=== PATIENT | female | born 2000 | race Caucasian/White ===

== ENCOUNTER → 2024-01-17 | Outpatient (CLI) | payer BC, SELFPAY ==
[2024-01-17 16:43] LABS: Mucous, Urine 0 SEEN /hpf (<or=2+); Red Blood Cells-Urine 0 SEEN /hpf (0-5)
[2024-01-17 18:42] LABS: Color, Urine Yellow (Yellow); Glucose, Dipstick Normal (Normal); Ketone-Dipstick Negative (Negative); Leukocyte Esterase-Dipstick 100 /ul (Negative); Nitrite-Dipstick Negative (Negative); Occult Blood-Urine 50 /ul (Negative); Protein-Dipstick Negative (Negative); Specific Gravity, Urine 1.005 (1.002-1.030); Urine Bilirubin Dipstick Negative (Negative); Urine Clarity Clear (Clear); Urine Urobilinogen Normal (Normal)
[2024-01-17 19:12] LABS: Bacteria 3+ /hpf (None Seen); White Blood Cells 0-5 SEEN /hpf (0-5)
[2024-01-17 19:13] LABS: Squamous Epithelial Cells - UA 0-5 SEEN /hpf (5-10)
== END | disposition home or self-care (01) ==
LOC: MFPLAB 16:41
PROVIDERS: PCP Family Medicine; Referring Provider Family Medicine; Visit Provider Family Medicine
DX: N39.0 Urinary tract infection, site not specified (principal)
CPT/HCPCS: 81001; 87086; 87088; 87186

== ENCOUNTER → 2024-03-15 | Outpatient (CLI) | payer BC, SELFPAY ==
[2024-03-15 10:15] LABS: Absolute Lymphocyte Count 2.19 X10^3/uL (0.83-4.51); Absolute Neutrophil Count 2.7 X10^3/uL (2.0-7.7); Basophil# 0.03 X10^3/uL; Basophil% 0.5 % (0-1); Eosinophil# 0.14 X10^3/uL; Eosinophils% 2.5 % (0-5); Hematocrit 42.1 % (37-47); Hemoglobin 13.2 g/dL (12.0-15.0); Lymphocyte # 2.19 X10^3/ul (0.83-4.51); Lymphocyte % 39.7 % (19-41); Mean Corp Hgb Conc 31.4 g/dL (32-36); Mean Corpuscular Hgb 28.6 pg (27.0-32.0); Mean Corpuscular Volume 91.1 fL (81-99); Mean Platelet Vol. 12.8 fl (6.2-12.0); Monocyte# 0.41 X10^3/uL; Monocyte% 7.4 % (0-10); NRBC Flagged by Analyzer 0 % (0-5); Neutrophil # 2.74 X10^3/uL (2.7-7.7); Neutrophil % 49.7 % (47-70); Platelet Count 187 K/mm3 (150-450); RBC Distribution Width CV 13.3 % (11.6-14.6); RBC Distribution Width SD 44.5 fl (35.1-43.9); Red Blood Count 4.62 M/mm3 (4.2-5.4); White Blood Count 5.5 K/mm3 (4.4-11.0)
[2024-03-15 10:32] LABS: Vitamin D,25 Hydroxy 32.9 ng/mL
[2024-03-15 10:56] LABS: ALB/GLOB Ratio 1.3 RATIO (0.9-2.4); AST(SGOT) 9 U/L (15-37); Alanine Aminotransfer ALT/SGPT 16 U/L (13-56); Albumin, Serum 3.5 g/dL (3.2-5.0); Alkaline Phosphatase 89 U/L (45-117); Anion Gap 6 (5-15); BUN 15 mg/dL (7-18); BUN/Creat Ratio 22.8 RATIO (10-20); Calcium,Total 8.5 mg/dL (8.5-10.1); Chloride 110 mmol/L (98-107); Creatinine, Serum 0.66 mg/dL (0.55-1.02); EST Glomerular Filtration Rate 116 mL/min (>60); Est Glom Filt Rate - Afr Amer 141 mL/min (>60); Globulin 2.6 g/dL (2.2-4.2); Glucose 95 mg/dL (74-106); Protein, Total 6.1 g/dL (6.4-8.2); Sodium Level 142 mmol/L (136-145)
== END | disposition home or self-care (01) ==
LOC: MTLAB 08:07
PROVIDERS: PCP Family Medicine; Referring Provider Family Medicine; Visit Provider Family Medicine
DX: R53.83 Other fatigue (principal)
CPT/HCPCS: 36415; 80053; 82306; 84443; 85025

== ENCOUNTER → 2024-09-18 | Outpatient (CLI) | payer BC, SELFPAY ==
--- NOTE | 2024-09-18 15:59 | RAD_ITS ---
PROCEDURE: KNEE 4 OR MORE VIEWS 09/18/2024 REASON FOR EXAM: LEFT KNEE PAIN TECHNIQUE: KNEE 4 OR MORE VIEWS COMPARISON: None FINDINGS: No fracture or malalignment. Joint spaces are maintained. Bone mineral density is subjectively normal. The soft tissues are unremarkable. No joint effusion. RAD/Knee 4 or More Views IMPRESSION: Unremarkable left knee radiographs. Reading Location: [id number]
== END | disposition home or self-care (01) ==
LOC: MTRAD 15:59
PROVIDERS: PCP Family Medicine; Referring Provider Family Medicine; Visit Provider Family Medicine
DX: M25.562 Pain in left knee (principal)
CPT/HCPCS: 73564

== ENCOUNTER → 2024-11-30 | Outpatient (CLI) | payer BC, SELFPAY | END | disposition home or self-care (01) | LOC: LABSPEC 16:11 | PROVIDERS: PCP Family Medicine | DX: R35.0 Frequency of micturition (principal) | CPT/HCPCS: 87086 ==

== ENCOUNTER → 2025-02-15 | Outpatient (CLI) | payer BC, SELFPAY ==
--- OUTSIDE RECORDS SUMMARY | 2025-02-15 16:44 | XMS RPT_ITS | CCD ---
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 (18-24) CHLAMYDIA SCREENING (18-24) [facility] Start: 2017 GC (GONORRHEA) SCREE MOSES (18-24) GC (GONORRHEA) SCREENING (18-24) [facility] Start: 2017 HEPATITIS C SCREENING HEPATITIS C [facility] Start: 2017 Hepatitis C screening Hepatitis C [facility] Start: 2017 HIV SCREENING HIV SCREENING [facility] Start: 2017 HIV screening HIV Screening [facility] Start: 2015 Meningococcal B Vacc ine: Consider Based On Risk (1 of 2 - Patient Seeks Protection) Meningococcal B Vaccine: Consider Based On Risk (1 of 2 - Patient Seeks Protection) [facility] Start: 2015 MENINGOCOCCAL B: Consider based on risk (1 of 2 - Patient Seeks Protection) MENINGOCOCCAL B: Consider based on risk (1 of 2 - Patient Seeks Protection) [facility] Start: 2013 PEDS TO ADULT TRANSI TION ANNUAL ASSESSMENT PEDS TO ADULT TRANSITION ANNUAL ASSESSMENT [facility] Start: 2011 PEDS TO ADULT TRANSI TION INITIAL DISCUSSION PEDS TO ADULT TRANSITION INITIAL DISCUSSION [facility] Start: 2009 MENINGOCOCCAL B: Consider based on risk (1 of 2 - Risk Bexsero 2-dose series) MENINGOCOCCAL B: Consider based on risk (1 of 2 - Risk Bexsero 2-dose series) [facility] Start: 1999 COVID-19 VACCINE (#1) COVID-19 VACCI NE (#1) [facility] PAP FLUID CERVICAL SCREENING PAP FLUID CERVICAL SCREENING Lab Routine Encounter for gynecological examination (general) (routine) without abnormal findings Screening for cervical cancer 11/06/2021 4:12 PM EDT [facility] Work Phone: PAP TEST PAP TEST Lab Rou miki Encounter for gynecological examination (general) (routine) without abnormal findings Screening for cervical cancer 11/16/2024 4:41 PM EDT [facility] Work Phone: [facility] Immunizations Immunization Date Immunization Notes Care Provider Mike rosenda 06-01-2023 tetanus toxoid, redu gege diphtheria toxoid, and acellular pertussis vaccine, adsorbed Isabel Dowd APRN.CARTOGRAPHIC DRAFTER Work Phone: [facility] 01-13-2023 influenza virus vacc ine, unspecified formulation Isabel Dowd APRN.CARTOGRAPHIC DRAFTER Work Phone: [facility] 03-12-2022 Human Papillomavirus 9-valent vaccine Nurse Wstr Work Phone: [facility] 11-06-2021 Human Papillomavirus 9-valent vaccine Isabel Dowd APRN.CARTOGRAPHIC DRAFTER Work Phone: [facility] 10-30-2020 Human Papillomavirus 9-valent vaccine Isabel Dowd APRN.CARTOGRAPHIC DRAFTER Work Phone: [facility] Work Phone: 11-18-2016 meningococcal polysaccharide (groups A, C, Y and W-135) diphtheria toxoid conjugate vaccine (MCV4P) Isabel Dowd APRN.CARTOGRAPHIC DRAFTER Work Phone: [facility] 01-05-2015 influenza virus vacc ine, unspecified formulation Isabel Dowd APRN.CARTOGRAPHIC DRAFTER Work Phone: [facility] Work Phone: 03-08-2014 influenza, live, intranasal, quadrivalent Isabel Dowd APRN.CARTOGRAPHIC DRAFTER Work Phone: [facility] Work Phone: 01-13-2013 influenza virus vacc ine, live, attenuated, for intranasal use Isabel Dowd APRN.CARTOGRAPHIC DRAFTER Work Phone: [facility] Work Phone: 10-30-2012 varicella virus vaccine Isabel Dowd APRN.CARTOGRAPHIC DRAFTER Work Phone: [facility] 12-25-2011 influenza virus vacc ine, live, attenuated, for intranasal use Isabel Dowd APRN.CARTOGRAPHIC DRAFTER Work Phone: [facility] Work Phone: 12-26-2010 influenza virus vacc ine, live, attenuated, for intranasal use Isabel Dowd APRN.[facility] Work Phone: [facility] Work Phone: 10-28-2010 Meningococcal, MCV4, unspecified conjugate formulation(groups A, C, Y and W-135) Isabel Dowd APRN.[facility] Work Phone: [facility] Work Phone: 10-28-2010 tetanus toxoid, redu gege diphtheria toxoid, and acellular pertussis vaccine, adsorbed Isabel Dowd APRN.[facility] Work Phone: [facility] Work Phone: 01-28-2009 novel influenza-H1N1 -09, all formulations Isabel Dowd APRN.[facility] Work Phone: [facility] 12-14-2008 influenza virus vacc ine, live, attenuated, for intranasal use Isabel Dowd APRN.[facility] Work Phone: [facility] Work Phone: 02-03-2008 influenza virus vacc ine, unspecified formulation Isabel Dowd APRN.[facility] Work Phone: [facility] Work Phone: 01-28-2007 influenza virus vacc ine, unspecified formulation Isabel Dowd APRN.[facility] Work Phone: [facility] Work Phone: 03-05-2006 influenza virus vacc ine, unspecified formulation Isabel Dowd APRN.[facility] Work Phone: [facility] Work Phone: 01-21-2005 influenza virus vacc ine, unspecified formulation Isabel Dowd APRN.[facility] Work Phone: [facility] Work Phone: 11-11-2003 diphtheria, tetanus toxoids and acellular pertussis vaccine Isabel Dowd APRN.[facility] Work Phone: [facility] Work Phone: 11-11-2003 measles, mumps and rubella virus vaccine Isabel Dowd APRN.[facility] Work Phone: [facility] Work Phone: 11-11-2003 poliovirus vaccine, inactivated Isabel Dowd AMERICANIZATION TEACHER.CARTOGRAPHIC DRAFTER Work Phone: [facility] Work Phone: 05-03-2001 measles, mumps and rubella virus vaccine Isabel Dowd APRN.CARTOGRAPHIC DRAFTER Work Phone: [facility] Work Phone: 12-27-2000 poliovirus vaccine, inactivated Isabel Dowd APRN.[facility] Work Phone: [facility] Work Phone: 07-05-2000 diphtheria, tetanus toxoids and acellular pertussis vaccine Isabel Dowd APRN.[facility] Work Phone: [facility] Work Phone: 07-05-2000 hepatitis B vaccine, pediatric or pediatric/adolescent dosage Isabel Dwod APRN.CARTOGRAPHIC DRAFTER Work Phone: [facility] Work Phone: 07-05-2000 pneumococcal conjuga te vaccine, 7 valent Isabel Dowd APRN.CARTOGRAPHIC DRAFTER Work Phone: [facility] Work Phone: 04-26-2000 haemophilus influenz ae type b vaccine, HbOC conjugate Isabel Dowd APRN.CARTOGRAPHIC DRAFTER Work Phone: [facility] Work Phone: 04-26-2000 pneumococcal conjuga te vaccine, 7 valent Isabel Dowd APRN.CARTOGRAPHIC DRAFTER Work Phone: [facility] Work Phone: 04-26-2000 varicella virus vaccine Isabel Dowd APRN.CARTOGRAPHIC DRAFTER Work Phone: [facility] Work Phone: 02-09-2000 hepatitis B vaccine, pediatric or pediatric/adolescent dosage Isabel Dowd APRN.CARTOGRAPHIC DRAFTER Work Phone: [facility] Work Phone: 02-09-2000 pneumococcal conjuga te vaccine, 7 valent Isabel Lynnhrie AMERICANIZATION TEACHER.[facility] Work Phone: [facility] Work Phone: 1999 diphtheria, tetanus toxoids and acellular pertussis vaccine Isabel Dowd AMERICANIZATION TEACHER.[facility] Work Phone: [facility] Work Phone: 1999 haemophilus influenz ae type b vaccine, HbOC conjugate Isabel Dowd AMERICANIZATION TEACHER.[facility] Work Phone: [facility] Work Phone: 1999 hepatitis B vaccine, pediatric or pediatric/adolescent dosage Isabel Dowd AMERICANIZATION TEACHER.[facility] Work Phone: [facility] Work Phone: 1999 pneumococcal conjuga te vaccine, 7 valent Isabel Dowd AMERICANIZATION TEACHER.[facility] Work Phone: [facility] Work Phone: 1999 diphtheria, tetanus toxoids and acellular pertussis vaccine Isabel Dowd AMERICANIZATION TEACHER.[facility] Work Phone: [facility] Work Phone: 1999 haemophilus influenz ae type b vaccine, HbOC conjugate Isabel Dowd AMERICANIZATION TEACHER.[facility] Work Phone: [facility] Work Phone: 1999 poliovirus vaccine, inactivated Isabel Dowd AMERICANIZATION TEACHER.CARTOGRAPHIC DRAFTER Work Phone: [facility] Work Phone: 1999 diphtheria, tetanus toxoids and acellular pertussis vaccine Isabel Dowd AMERICANIZATION TEACHER.CARTOGRAPHIC DRAFTER Work Phone: [facility] Work Phone: 1999 haemophilus influenz ae type b vaccine, HbOC conjugate Isabel Dowd AMERICANIZATION TEACHER.CARTOGRAPHIC DRAFTER Work Phone: [facility] Work Phone: 1999 poliovirus vaccine, inactivated Isabel Dowd APRN.[facility] Work Phone: [facility] Work Phone: Payers Date Payer Category Payer Self-pay 2021 [employer] BLUE CARD PPO OOS Member Subscriber Plan / Payer (Effective 2021-Present) Name: LIANNA CONDON Relation to Subscriber: Self Name: Lianna Condon Payer ID: [id number] (NAIC) Type: PPO Address: [facility] [address] [place] [id number] 2021 Unknown [id number] 2020 Unknown [id number] Unknown [id number] Unknown [id number] Unknown [id number] Unknown [id number] Unknown [id number] Unknown [id number] Unknown [id number] Social History Date Type Detail Facility Start: 08-29-2017 End: 10-04-2024 Tobacco smoking status NHIS Never smoked tobacco [facility] Start: 08-29-2017 End: 03-12-2022 Tobacco use and exposure Smokeless tobacco non-user [facility] Start: 11-06-2021 End: 11-16-2024 Alcohol intake Current non-drinker of alcohol (finding) [facility] Start: 10-30-2020 Education [address] [facility] Start: 1999 Sex Assigned At Not on file C [facility] Start: 11-09-2022 End: 11-16-2024 History of Social function [facility] Start: 11-09-2022 End: 11-16-2024 Tobacco use panel [facility] Start: 02-20-2012 National Score (1-10 0), lower number is lower risk [address] [facility] Tobacco smoking stat [facility] Unknown if ever smoked [facility] Work Phone: Start: 2000 Sex Assigned At Female W [facility] Functional Status Date Assessment Result Facility 08-06-2014 Are you deaf, or do you have serious difficulty hearing No 08/06/2014 10:07 AM EDT Payam Medeiros Cma L No [facility] 08-06-2014 Are you blind, or do you have serious difficulty seeing, even when wearing glasses No 08/06/2014 10:07 AM EDT Waldemar Hicks Payam L No [facility] 08-06-2014 Do you have serious difficulty walking or climbing stairs No 08/06/2014 10:07 AM EDT Tristan Medeiros Cmai L No [facility] 08-06-2014 Do you have difficul ty dressing or bathing No 08/06/2014 10:07 AM EDT Tristan Medeiros Cmai L No [facility] 08-06-2014 Because of a physica l, mental, or emotional condition, do you have difficulty doing errands alone such as visiting a physician's office or shopping No 08/06/2014 10:07 AM EDTristan Dudley Cmai L No [facility] Mental Status Date Assessment Result Facility 08-06-2014 Because of a physica l, mental, or emotional condition, do you have serious difficulty concentrating, remembering, or making decisions No 08/06/2014 10:07 AM EDT Tristan Medeiros Cmai L No [facility] Clinical Notes 11-06-2021 to 11-16-2024 Patient InstructionsIsabel Dowd APRN.CARTOGRAPHIC DRAFTER - 11/16/2024 3:45 PM EDT Note Date & Type Note Facility 11-16-2024 Instructions Isabel Dowd APRN.CNP - 11/16/2024 5:22 PM EDT - Pap test specimen collected; results will be [facility] 1[facility] and you will receive a notification when they re ready. - Continue taking your cranberry capsules and vitamin with folic acid as you ve been doing. - For the recurrent small bumps (folliculitis) on your labia: apply warm compresses to the area, use antibiotic ointment, and consider soaking in a warm bath with Epsom salts if lesions worsen. Avoid squeezing or picking at them. - If you experience ongoing irritation from the size or position of your labia and wish to explore a surgical option, schedule a consultation with Dr. Maile Amezquita in our office; she will assess you and submit any necessary documentation to your insurance for coverage review. documented in this encounter [facility] 11-16-2024 Note HNO ID: [id number] Author: ISABEL DOWD APRN.BLAS Service: ? Author Type: Nurse Practitioner Type: Progress Notes Filed: 11/16/2024 17:23 Note Text: Pharmacy Stock Clerk offered: Patient declines. Lianna is a 24 year old who presents for an annual gynecologic exam with complaints of recurrent pimple-like areas to vulva. Folliculitis - Reports recurrent folliculitis on the labia minora, with the most recent episode occurring approximately two weeks ago. - Describes lesions as small, painful, and sometimes associated with purplish discoloration. - Denies any recent shaving, hot tub use, or other potential irritants. Labial Irritation - Reports irritation of the left labia minora, which is longer than the right, causing discomfort with wiping and wearing certain clothing. Menses: cycles every 28-30 days and 5 days of moderate flow. 1 missed period between May and June. Period symptoms: Acne; Breast tenderness; Cramps; Mood change Contraception: withdrawal Happy and accepting if occurs. Libido and mood is better. HPV vaccine: completed Last Pap: 11/06/2021 normal HPV: N/A History of abnormal pap: no Last mammogram: never Sexually active: Yes History of STDS: None Patient concerns for STD exposure: No. Time with current partner: 4 year Number of lifetime partners: 1 Pain with intercourse: No Postcoital bleeding: No Bothersome pelvic pain: No Documentation from previous visit of 11/15/2023 was copied and pasted, documentation has been reviewed and edited as necessary for today's visit. OB History Gravida0 Para0 Term0 Preterm0 AB0 Living0 SAB0 IAB0 Ectopic0 Multiple0 Live Births0 Resourcing Consultant History LMP: 10/20/2024, Having periods Age at Menarche: 10 Age at First : Age at Menopause: Resourcing Consultant History Comments: Sexual Activity: Yes; Male Contraception: Withdrawal Menstrual Tracking History Flowsheet Row Office Visit from 11/16/2024 in OB/Gynecology Period Cycle (Days) 30 Period Duration (Days) 5 Menstrual Flow Moderate PAST MEDICAL HISTORY Diagnosis Date NEGATIVE MEDICAL HISTORY 10/21/09 normal color vision PMH - PAST MEDICAL HISTORY OF fused labial adhesion Unspecified and jaundice PAST SURGICAL HISTORY Procedure Laterality Date NONE FAMILY HISTORY Problem Relation Age of Onset Allergies Mother Asthma Mother other () Mother 10/17/09 homicide/suicide Diabetes Father maternal side Hypertension Father maternal side other () Father 10/17/09 homicide/suicide Dementia Maternal Grandmother Glaucoma Maternal Grandfather Seizures Maternal Grandfather SOCIAL HISTORY Social History Tobacco Use Smoking status: Never Smokeless tobacco: Never Vaping Use Vaping status: Never Used Substance Use Topics Alcohol use: No Drug use: No REVIEW OF SYSTEMS Abdomen: No abdominal pain, nausea, vomiting, diarrhea, or constipation. No bloating, early satiety, indigestion, or increased flatulence. Bladder: No dysuria, gross hematuria, urinary frequency, urinary urgency, or incontinence. Breast: No breast lumps, nipple d/c, overlying skin changes, redness or skin retraction. Allergies and current medication updated:Yes SENSITIVE EXAM: The sensitive examination was discussed with the Patient or Patient's Authorized Host And Hostess. As applicable, any other physician, advance practice provider, medical student, or other health professional student that will be observing or involved in the sensitive examination for educational or training purposes was discussed with the Patient or Authorized Host And Hostess. The Patient or Authorized Host And Hostess has agreed to proceed with the sensitive examination. (Sensitive examination includes inspection and/or palpation of the breasts, pelvis, prostate and anorectal regions). EXAM: BP 112/73 Ht 5' 3 (1.60m) Wt 130 lb (59.0kg) LMP 10/20/2024 BMI 23.03 kg/(m2). GENERAL: pleasant, female in no apparent distress HEENT: Normocephalic, atraumatic, mucus membranes moist, and no lesions NECK: Supple, full range of motion, no adenopathy, and thyroid normal DERMATOLOGY: Normal, without lesions, non-icteric, and non-hirsute BREAST: soft, non-tender, symmetric, no dominant mass, normal nipple-areolar complex, no lymphadenopathy, and no nipple discharge CHEST: Normal inspiratory effort ABDOMEN: soft, non-tender, and no masses PELVIC: external genitalia normal, normal Bartholin's glands, urethra, [place]'s glands, no vulvar lesions, no cervical lesions, good vaginal support, physiologic discharge present, normal appearing perineal body and perianal region. Left labia larger than right. BIMANUAL: uterus normal size, shape and consistency, no adnexal masses, and non-tender RECTOVAGINAL: deferred. NEURO: alert and oriented x3,exam grossly non-focal EXTREMITIES: normal ASSESSMENT/PLAN: 1) Health maintenance: Pap done with reflex H (more content not included)... [facility] 11-16-2024 History of Presen t illness Narrative Pharmacy Stock Clerk offered: Patient declines. Lianna is a 24 year old who presents for an annual gynecologic exam with complaints of recurrent pimple-like areas to vulva. Folliculitis - Reports recurrent folliculitis on the labia minora, with the most recent episode occurring approximately two weeks ago. - Describes lesions as small, painful, and sometimes associated with purplish discoloration. - Denies any recent shaving, hot tub use, or other potential irritants. Labial Irritation - Reports irritation of the left labia minora, which is longer than the right, causing discomfort with wiping and wearing certain clothing. Menses: cycles every 28-30 days and 5 days of moderate flow. 1 missed period between May and June. Period symptoms: Acne; Breast tenderness; Cramps; Mood change Contraception: withdrawal Happy and accepting if occurs. Libido and mood is better. HPV vaccine: completed Last Pap: 11/06/2021 normal HPV: N/A History of abnormal pap: no Last mammogram: never Sexually active: Yes History of STDS: None Patient concerns for STD exposure: No. Time with current partner: 4 year Number of lifetime partners: 1 Pain with intercourse: No Postcoital bleeding: No Bothersome pelvic pain: No Documentation from previous visit of 11/15/2023 was copied and pasted, documentation has been reviewed and edited as necessary for today's visit. OB History Gravida0 Para0 Term0 Preterm0 AB0 Living0 SAB0 IAB0 Ectopic0 Multiple0 Live Births0 Resourcing Consultant History LMP: 10/20/2024, Having periods Age at Menarche: 10 Age at First : Age at Menopause: Resourcing Consultant History Comments: Sexual Activity: Yes; Male Contraception: Withdrawal Menstrual Tracking History Flowsheet Row Office Visit from 11/16/2024 in OB/Gynecology Period Cycle (Days) 30 Period Duration (Days) 5 Menstrual Flow Moderate PAST MEDICAL HISTORY Diagnosis Date NEGATIVE MEDICAL HISTORY 10/21/09 normal color vision PMH - PAST MEDICAL HISTORY OF fused labial adhesion Unspecified and jaundice PAST SURGICAL HISTORY Procedure Laterality Date NONE FAMILY HISTORY Problem Relation Age of Onset Allergies Mother Asthma Mother other () Mother 10/17/09 homicide/suicide Diabetes Father maternal side Hypertension Father maternal side other () Father 10/17/09 homicide/suicide Dementia Maternal Grandmother Glaucoma Maternal Grandfather Seizures Maternal Grandfather SOCIAL HISTORY Social History Tobacco Use Smoking status: Never Smokeless tobacco: Never Vaping Use Vaping status: Never Used Substance Use Topics Alcohol use: No Drug use: No REVIEW OF SYSTEMS Abdomen: No abdominal pain, nausea, vomiting, diarrhea, or constipation. No bloating, early satiety, indigestion, or increased flatulence. Bladder: No dysuria, gross hematuria, urinary frequency, urinary urgency, or incontinence. Breast: No breast lumps, nipple d/c, overlying skin changes, redness or skin retraction. Allergies and current medication updated:Yes SENSITIVE EXAM: The sensitive examination was discussed with the Patient or Patient's Authorized Host And Hostess. As applicable, any other physician, advance practice provider, medical student, or other health professional student that will be observing or involved in the sensitive examination for educational or training purposes was discussed with the Patient or Authorized Host And Hostess. The Patient or Authorized Host And Hostess has agreed to proceed with the sensitive examination. (Sensitive examination includes inspection and/or palpation of the breasts, pelvis, prostate and anorectal regions). EXAM: BP 112/73 Ht 5' 3 (1.60m) Wt 130 lb (59.0kg) LMP 10/20/2024 BMI 23.03 kg/(m^2). GENERAL: pleasant, female in no apparent distress HEENT: Normocephalic, atraumatic, mucus membranes moist, and no lesions NECK: Supple, full range of motion, no adenopathy, and thyroid normal DERMATOLOGY: Normal, without lesions, non-icteric, and non-hirsute BREAST: soft, non-tender, symmetric, no dominant mass, normal nipple-areolar complex, no lymphadenopathy, and no nipple discharge CHEST: Normal inspiratory effort ABDOMEN: soft, non-tender, and no masses PELVIC: external genitalia normal, normal Bartholin's glands, urethra, Claremont's glands, no vulvar lesions, no cervical lesions, good vaginal support, physiologic discharge present, normal appearing perineal body and perianal region. Left labia larger than right. BIMANUAL: uterus normal size, shape and consistency, no adnexal masses, and non-tender RECTOVAGINAL: deferred. NEURO: alert and oriented x3,exam grossly non-focal EXTREMITIES: normal ASSESSMENT/PLAN: 1) Health maintenance: Pap done with reflex HPV. Nutrition, exercise and routine health maintenance exams reviewed. HPV vaccine: completed series - Pelvic examination revealed no acute abnormalities; patient reports occasional small, painful folliculitis-like lesions on the labia. - Advised application of warm compresses to affected areas; recommended topical antibiotic ointment to reduce further irritation and avoid manual expression of lesions. - Discussed potential irritants (e.g., shaving, hygiene products, friction) and measures to minimize recurrence. - Patient continues use of cranberry capsules and vitamins; no additional prescriptions. - Noted patient displeasure with left labium minor protrusion causing irritation; referred to Dr. Amezquita for possible labiaplasty consultation if desired. 2) Contraception: withdrawal. Contraceptive options reviewed and information provided.PNVFA 3) STD screening: Declined STI check. 4) Follow up one year or sooner as needed Isabel Dowd APRN.BLAS documented in this encounter [facility] 10-04-2024 Evaluation note Diagnosis Onset Date Resolution Bursitis of left knee acute Sep 3:27pm Strain of left knee acute October 04, 2024 3:27pm [facility] Work Phone: 1(670) 763-956907-01-2025 Radiology Diagnostic study note [facility] Imaging Services [address] [place], [place] [address] Knee 4 or More Views MR#: [id number] Acct: [id number] Name: LIANNA CONDON Rep #: [id number] : 2000 24 From: Mar Wade MD PCP: Dr. Bret Cormier MD Status: REG CL I Study:Knee 4 or More Views Date of Exam: 09/18/24 Exam# [id number] Ordering Dr: Saumya Cormier MD PROCEDURE: KNEE 4 OR MORE VIEWS 09/18/2024 REASON FOR EXAM: LEFT KNEE PAIN TECHNIQUE: KNEE 4 OR MORE VIEWS COMPARISON: None FINDINGS: No fracture or malalignment. Joint spaces are maintained. Bone mineral densityis subjectively normal. The soft tissues are unremarkable. No joint effusion. RAD/Knee 4 or More Views IMPRESSION: Unremarkable left knee radiographs. Reading Location: [facility] CC: Dr. Bret Cormier MD ~ City Collector: Signed [facility]08-27-2024 Instructions* Patient Instructions* Isabel Dowd APRN.CARTOGRAPHIC DRAFTER - 11/15/2023 3:49 PM EDT Preconception: vitamin with folic acid 0.4 - 1 mg daily. Eat a healthy, balanced diet with daily exercise. Avoid pollutants and exposure to chemicals. Period tracker to predict time of ovulation. If you have PCOS, ovulation trackers are not accurate. Sexual intercourse every other day around ovulation but at least once a week. Healthy sperm can live for one week. Avoid water-based lubricants. You can use Pre-Seed, which is not toxic to sperm. VCF contraceptive strips/membranes used with condoms 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 Lianna is a 23 year old who presents for an annual gynecologic exam without complaints. Menses: cycles every 28-30 days and 5 days of flow. Contraception: condoms- stopped at least 9 months ago to see how body would respond. Happy and accepting if occurs. Libido and mood is better. HPV vaccine: completed Last Pap: 11/06/2021 normal HPV: N/A History of abnormal pap: no Last mammogram: never Sexually active: Yes History of STDS: None Patient concerns for STD exposure: No. Time with current partner: 3 year Pain with intercourse: No Postcoital bleeding: No Documentation from previous visit of 11/09/2022 was copied and pasted, documentation has been reviewed and edited as necessary for today's visit. OB History T0 L0 SAB0 IAB0 Ectopic0 Multiple0 Live Births0 Resourcing Consultant History LMP: 11/04/2023 (Exact Date), Having periods Age at Menarche: Age at First : Age at Menopause: Resourcing Consultant History Comments: Sexual Activity: Yes; Male Contraception: Pill PAST MEDICAL HISTORY 10/21/09: NEGATIVE MEDICAL HISTORY Comment: normal color vision No date: PMH - PAST MEDICAL HISTORY OF Comment: fused labial adhesion No date: Unspecified and jaundicePAST SURGICAL HISTORY No date: NONE FAMILY HISTORY Problem Relation Age of Onset Allergies Mother Asthma Mother other () Mother 10/17/09 homicide/suicide Diabetes Father maternal side Hypertension Father maternal side other () Father 10/17/09 homicide/suicide Dementia Maternal Grandmother Glaucoma Maternal Grandfather Seizures Maternal Grandfather SOCIAL HISTORY Social History Tobacco Use Smoking status: Never Smokeless tobacco: Never Vaping Use Vaping status: Never Used Substance Use Topics Alcohol use: No Drug use: No REVIEW OF SYSTEMS Abdomen: No abdominal pain, nausea, vomiting, diarrhea, or constipation. No bloating, early satiety, indigestion, or increased flatulence. Bladder: No dysuria, gross hematuria, urinary frequency, urinary urgency, or incontinence. Breast: No breast lumps, nipple d/c, overlying skin changes, redness or skin retraction. Allergies and current medication updated:Yes EXAM: BP 118/64 Ht 5' 2.992 (1.60m) Wt 139 lb 9.6 oz (63.3kg) LMP 11/04/2023 BMI 24.74 kg/(m^2). GENERAL: pleasant, female in no apparent distress HEENT: Normocephalic, atraumatic, mucus membranes moist, and no lesions NECK: Supple, full range of motion, no adenopathy, and thyroid normal DERMATOLOGY: Normal, without lesions, non-icteric, and non-hirsute BREAST: soft, non-tender, symmetric, no dominant mass, normal nipple-areolar complex, no lymphadenopathy, and no nipple discharge CHEST: Normal inspiratory effort ABDOMEN: soft, non-tender, and no masses PELVIC: external genitalia normal, normal Bartholin's glands, urethra, Claremont's glands, no vulvar lesions, no cervical lesions, good vaginal support, physiologic discharge present, normal appearing perineal body and perianal region BIMANUAL: uterus normal size, shape and consistency, no adnexal masses, and non-tender RECTOVAGINAL: deferred. NEURO: alert and oriented x3,exam grossly non-focal EXTREMITIES: normal ASSESSMENT/PLAN: 1) Health maintenance: Pap/HPV up to date. Nutrition, exercise and routine health maintenance exams reviewed. HPV vaccine: completed series 2) Contraception: condoms. Contraceptive options reviewed and information provided. Recommend PNVFA 3) STD screening: Declined STD check. 4) Follow up one year or sooner as needed Isabel Dowd APRN.BLAS [facility] Instructions* Patient Instructions* Isabel Dowd APRN.CNP - 11/09/2022 3:29 PM EDT Preconception: vitamin with folic acid 0.4 - 1 mg daily. Eat a healthy, balanced diet with daily exercise. Avoid pollutants and exposure to chemicals. Period tracker to predict time of ovulation. Sexual intercourse every other day around ovulation but at least once a week. Healthy sperm can live for one week. Avoid water-based lubricants. You can use Pre-Seed, which is not toxic to sperm. documented [facility] History of Present illness Narrative* Isabel Dowd APRN.CNP - 11/09/2022 3:13 PM EDT Pharmacy Stock Clerk offered: Patient declines. Lianna is a 22 year old who presents for an annual gynecologic exam without complaints. Menses: cycles every 28 days and 5-6 days of flow. Contraception: OCP HPV vaccine: completed Last Pap: 10/2021 normal HPV: N/A History of abnormal pap: no Last mammogram: never Sexually active: Yes History of STDS: None Patient concerns for STD exposure: No. Time with current partner: 2 year Pain with intercourse: No Postcoital bleeding: No Documentation from previous visit of 11/06/2021 was copied and pasted, documentation has been reviewed and edited as necessary for today's visit. OB History T0 L0 SAB0 IAB0 Ectopic0 Multiple0 Live Births0 Resourcing Consultant History LMP: 10/28/2022 (Exact Date), Having periods Age at Menarche: Age at First : Age at Menopause: Resourcing Consultant History Comments: Sexual Activity: Yes; Male Contraception: Pill PAST MEDICAL HISTORY Diagnosis Date NEGATIVE MEDICAL HISTORY 10/21/09 normal color vision PMH - PAST MEDICAL HISTORY OF fused labial adhesion Unspecified and jaundice PAST SURGICAL HISTORY Procedure Laterality Date NONE FAMILY HISTORY Problem Relation Age of Onset Allergies Mother Asthma Mother other () Mother 10/17/09 homicide/suicide Diabetes Father maternal side Hypertension Father maternal side other () Father 10/17/09 homicide/suicide Dementia Maternal Grandmother Glaucoma Maternal Grandfather Seizures Maternal Grandfather SOCIAL HISTORY Social History Tobacco Use Smoking status: Never Smokeless tobacco: Never Vaping Use Vaping Use: Never used Substance Use Topics Alcohol use: No Drug use: No REVIEW OF SYSTEMS Abdomen: No abdominal pain, nausea, vomiting, diarrhea, or constipation. No bloating, early satiety, indigestion, or increased flatulence. Bladder: No dysuria, gross hematuria, urinary frequency, urinary urgency, or incontinence. Breast: No breast lumps, nipple d/c, overlying skin changes, redness or skin retraction. Allergies and current medication updated:Yes EXAM: BP 110/66 Ht 5' 3 (1.60m) Wt 151 lb 6.4 oz (68.7kg) LMP 10/28/2022 BMI 26.83 kg/(m^2). GENERAL: pleasant, female in no apparent distress HEENT: Normocephalic, atraumatic, mucus membranes moist, and no lesions NECK: Supple, full range of motion, no adenopathy, and thyroid normal DERMATOLOGY: Normal, without lesions, non-icteric, and non-hirsute BREAST: soft, non-tender, symmetric, no dominant mass, normal nipple-areolar complex, no lymphadenopathy, and no nipple discharge CHEST: Normal inspiratory effort ABDOMEN: soft, non-tender, and no masses PELVIC: external genitalia normal, normal Bartholin's glands, urethra, [place]'s glands, no vulvar lesions, no cervical lesions, good vaginal support, physiologic discharge present, normal appearing perineal body and perianal region BIMANUAL: uterus normal size, shape and consistency, no adnexal masses, and non-tender RECTOVAGINAL: deferred. NEURO: alert and oriented x3,exam grossly non-focal EXTREMITIES: normal ASSESSMENT/PLAN: 1) Health maintenance: Pap/HPV up to date. Nutrition, exercise and routine health maintenance exams reviewed. HPV vaccine: completed series 2) Contraception: combined hormonal contraceptives. Contraceptive options reviewed and information provided. Considering in next year. 3) STD screening: Declined STD check. 4) Follow up one year or sooner as needed Isabel Dowd APRN.BLAS [facility] Instructions* Patient Instructions* Henrietta Franklin RN - 03/12/2022 2:57 PM EST Gardasil Gardasil is a vaccine to protect against Human Papillomavirus (HPV) types 6, 11, 16, 18, 31,33,45, 52, 58. These viruses cause cancer and precancerous lesions on the cervix (opening between vagina and uterus), in the vagina and on the vulva (skin around the outside of the vagina) as well as genitalwarts. The vaccine cannot cause these diseases and cannot treat them if already present. Gardasil works best if given before contact with HPV. Most people are exposed to HPV soon after starting sexual activity. The vaccine is recommended between the ages of 9 and 45. Gardasil does not protect against all strains of HPV. Women who receive the vaccine still need to have regular pelvic exams and cervical cancer screening with the pap smear. You should ask your doctor if Gardasil is right for you if you have a weakened immune system, a bleeding disorder, plan to become soon or have a current illness causing fever. Gardasil is not recommended for women. You should be sure your doctor is aware of any allergies you have and all medications and herbal supplements you take. Gardasil is given to those ages 9-14 in 2 doses at 0 and 8 months. In ages 15- 45, three injections are given at 0,2,6 months. Common side effects include pain, redness, itching and swelling at the injection site, nausea, fever, dizziness and fainting. Rare but potentially serious reactions have been reported. These include allergic reaction, swollen glands, joint and muscle pain, weakness and Guillain-Troy syndrome. documented in this encounter[facility]12[facility] History of Present illness Narrative* Henrietta Franklin RN - 03/12/2022 2:53 PM EST Patient identified by name and date of . Lianna Condon is here for her HPV 9 vaccination, injection # three of the series. Patient ?No Gardasil injection was given without incident. See immunizations for details of immunizations administered today. VIS sheet provided: Yes Patient advised to follow up in Series completed Provider Niki Solomon APRN.KONSTANTINM was present in office at time of injection. Henrietta Franklin RN documented in this encounter[facility]22 History of Present illness Narrative* Maria Elena Myers RN - 11/06/2021 4:00 PM EDT Patient identified by name and date of . Lianna Condon is here for her HPV Gardasil vaccination, injection # two of the series. Patient ?No Gardasil injection was given without incident. See immunizations for details of immunizations administered today. VIS sheet provided: Yes Patient advised to follow up in 4 months from the 2nd injection Provider Isabel Dowd CNP was present in office at time of injection. 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 Got Dec 27, 2020. Menses: cycles every 28 days and 5-6 days of flow. Contraception: OCP HPV vaccine: Has had first in series Last Pap: N/ever HPV: N/A History of abnormal pap: N/A Last mammogram: never Sexually active: Yes Sexually active: Yes History of STDS: None Patient concerns for STD exposure: No. Time with current partner: 1 year Pain with intercourse: No Postcoital bleeding: No Documentation from previous visit of 10/30/2020 was copied and pasted, documentation has been reviewed and edited as necessary for today's visit. OB History T0 L0 SAB0 IAB0 Ectopic0 Multiple0 Live Births0 Resourcing Consultant History LMP: 10/28/2021, Having periods Age at Menarche: Age at First : Age at Menopause: Resourcing Consultant History Comments: Sexual Activity: Yes; No partner data on record Contraception: Pill PAST MEDICAL HISTORY Diagnosis Date NEGATIVE MEDICAL HISTORY 10/21/09 normal color vision PMH - PAST MEDICAL HISTORY OF fused labial adhesion Unspecified and jaundice PAST SURGICAL HISTORY Procedure Laterality Date NONE FAMILY HISTORY Problem Relation Age of Onset Allergies Mother Asthma Mother other () Mother 10/17/09 homicide/suicide Diabetes Father maternal side Hypertension Father maternal side other () Father 10/17/09 homicide/suicide SOCIAL HISTORY Social History Tobacco Use Smoking status: Never Smokeless tobacco: Never Vaping Use Vaping Use: Never used Substance Use Topics Alcohol use: No Drug use: No REVIEW OF SYSTEMS Abdomen: No abdominal pain, nausea, vomiting, diarrhea, or constipation. No bloating, early satiety, indigestion, or increased flatulence. Bladder: No dysuria, gross hematuria, urinary frequency, urinary urgency, or incontinence. Breast: No breast lumps, nipple d/c, overlying skin changes, redness or skin retraction. Allergies and current medication updated:Yes EXAM: BP 108/64 Ht 5' 3 (1.60m) Wt 151 lb (68.5kg) LMP 10/28/2021 BMI 26.76 kg/(m^2). GENERAL: pleasant, female in no apparent distress HEENT: Normocephalic, atraumatic, mucus membranes moist, and no lesions NECK: Supple, full range of motion, no adenopathy, and thyroid normal DERMATOLOGY: Normal, without lesions, non-icteric, and non-hirsute BREAST: soft, non-tender, symmetric, no dominant mass, normal nipple-areolar complex, no lymphadenopathy, and no nipple discharge CHEST: Normal inspiratory effort ABDOMEN: soft, non-tender, and no masses PELVIC: external genitalia normal, normal Bartholin's glands, urethra, [place]'s glands, no vulvar lesions, no cervical lesions, good vaginal support, physiologic discharge present, normal appearing perineal body and perianal region BIMANUAL: uterus normal size, shape and consistency, no adnexal masses, and non-tender RECTOVAGINAL: deferred. NEURO: alert and oriented x3,exam grossly non-focal EXTREMITIES: normal ASSESSMENT/PLAN: 1) Health maintenance: Pap done with reflex HPV. Nutrition, exercise and routine health maintenance exams reviewed. HPV vaccine: will receive 2nd in series today 2) Contraception: combined hormonal contraceptives. Contraceptive options reviewed and information provided. 3) STD screening: Declined STD check. 4) Follow up one year or sooner as needed Isabel Dowd APRN.BLAS documented in [facility] encounter[facility]* Diagnosis Encounter for gynecological examination (general) (routine) without abnormal findings- Primary Surveillance for control, oral contraceptives Surveillance of previously prescribed contraceptive pill Screening for cervical cancer Screening for malignant neoplasm of the cervix Need for prophylactic vaccination/inoculation against viral disease Need for prophylactic vaccination and inoculation against other viral diseases documented in this encounter [facility] note* Diagnosis Surveillance for control, oral contraceptives Surveillance of previously prescribed contraceptive pill documented in this encounter [facility] note* Diagnosis Need for prophylactic vaccination/inoculation against viral disease- Primary Need for prophylactic vaccination and inoculation against other viral diseases documented in this encounter [facility] note* Diagnosis Encounter for gynecological examination (general) (routine) without abnormal findings- Primary Surveillance for control, oral contraceptives Surveillance of previously prescribed contraceptive pill documented in this encounter [facility] note* Diagnosis Encounter for gynecological examination (general) (routine) without abnormal findings- Primary documented in this encounter [facility] noteNo assessment information availableWProMedica [facility] Work Phone: Evaluation note* Diagnosis Onset Date Resolution Status Admit Date Bursitis of left knee acute Enrrique 2024 3:27pm Strain of left knee acute October 04, 2024 3:27pm [facility] [employer] Work Phone: Evaluation note* Diagnosis Encounter for gynecological examination (general) (routine) without abnormal findings- Primary Screening for cervical cancer Screening for malignant neoplasm of the cervix documented in this encounter [facility] for referral (narrative)No reason for referral information availableWProMedica [facility] Work Phone: Summary Purpose Family History No Family History Records FoundNo Family History Records FoundNo Family History Records FoundNo Family History Records Found Advance Directives No Advanced Directives Records FoundNo Advanced Directives Records FoundNo Advanced Directives Records FoundNo Advanced Directives Records Found Chief Complaint and Reason for Visit Chief Complaint Admit Date left knee September 18, 2024 3:57p m Chief Complaint Admit Date left knee September 18, 2024 3:57p m LEFT KNEE October 04, 2024 3:27 pm Reason for Visit Admit Date Bursitis of left knee October 04, 2024 3: 27pm Strain of left knee October 04, 2024 3:27 pm Additional Source Comments INFORMATION SOURCE (unrecogn ized section and content) DATE CREATED AUTHOR 09/14/2017 Tom Loredo [facility] DATE CREATED AUTHOR AUTHOR'S MADIEIZ ATION 09/14/2017 [facility] DATE CREATED AUTHOR AUTHOR'S ORGANIZ ATION 11/24/2024 [facility] DATE CREATED AUTHOR AUTHOR'S ORGANIZ ATION 12/09/2024 [facility] Source Comments (unrecognize d section and content) In the event this informatio n is protected by the Federal Confidentiality of Alcohol and Drug Abuse Patient Records regulations: The Federal rules restrict any use of the information to criminally investigate or prosecute any alcohol or drug abuse patient.[facility] the event this information is protected by the Federal Confidentiality of Alcohol and Drug Abuse Patient Records regulations: The Federal rules restrict any use of the information to criminally investigate or prosecute any alcohol or drug abuse patient.[facility] Center[facility] the event this information is protected by the Federal Confidentiality of Alcohol and Drug Abuse Patient Records regulations: The Federal rules restrict any use of the information to criminally investigate or prosecute any alcohol or drug abuse patient.[facility] Center[facility] the event this information is protected by the Federal Confidentiality of Alcohol and Drug Abuse Patient Records regulations: The Federal rules restrict any use of the information to criminally investigate or prosecute any alcohol or drug abuse patient.[facility] Center[facility] the event this information is protected by the Federal Confidentiality of Alcohol and Drug Abuse Patient Records regulations: The Federal rules restrict any use of the information to criminally investigate or prosecute any alcohol or drug abuse patient.[facility] CenterIn the event this information is protected by the Federal Confidentiality of Alcohol and Drug Abuse Patient Records regulations: The Federal rules restrict any use of the information to criminally investigate or prosecute any alcohol or drug abuse patient.[facility] Reason for Visit (unrecogniz ed section and content) Reason Onset Date Comments Gardasil Injection 11/06/2021 Reason Comments Refill Request Reason Onset Date Comments Gardasil Injection 03/12/2022 Reason Comments [facility] Teams (unrecognized sec tion and content) Sales Operations Associate Relationship Specialty Start Date End Date Sophia Campuzano MD [address] [place] [address] PCP - General 03/26/02 Sales Operations Associate Relationship Specialty Start Date End Date Sophia Campuazno MD [address] [place] [address] PCP - General 03/26/02 Sales Operations Associate Relationship Specialty Start Date End Date Sophia Campuzano MD [address] [place] [address] PCP - General 03/26/02 Sales Operations Associate Relationship Specialty Start Date End Date Sophia Campuzano MD [address] [place] [address] PCP - General 03/26/02 Team Status: Active Member Role/Relationship Status Kristan Cormier MD Primary Care Provider Active Team Status: Inactive Member Role/Relationship Status Kristan Cormier MD Primary Care Provider Active St art: September 18, 2024 End: September 18, 2024 Bret Cormier MD Attending Provider Active Start : September 18, 2024 End: September 18, 2024 Bret Cormier MD Referring Provider Active Start : September 18, 2024 End: September 18, 2024 Team Status: Inactive Member Role/Relationship Status Kristan Cormier MD Primary Care Provider Active St art: October 04, 2024 End: October 04, 2024 Bret Cormier MD Referring Provider Active Start : October 04, 2024 End: October 04, 2024 NOHEMI Hartley Attending Provider Active Start: October 04, 2024 End: October 04, 2024 Team Status: Active Member Role/Relationship Status Kristan Cormier MD Primary care physician Active Team Status: Inactive Member Role/Relationship Status Kristan Cormier MD Primary care physician Active S tart: September 18, 2024 End: September 18, 2024 Bret Cormier MD Attending physician Active Star t: September 18, 2024 End: September 18, 2024 Bret Cormier MD Referring Provider Active Start : September 18, 2024 End: September 18, 2024 Team Status: Inactive Member Role/Relationship Status Kristan Cormier MD Primary care physician Active S tart: October 04, 2024 End: October 04, 2024 Bret Cormier MD Referring Provider Active Start : October 04, 2024 End: October 04, 2024 NOHEMI Hartley Attending physician Active Start: October 04, 2024 End: October 04, 2024 Team Status: Inactive Member Role/Relationship Status Dates Bret Cormier MD Primary care physician Active S tart: November 30, 2024 End: November 30, 2024 NOHEMI Lutz NP Attending physician Active Start: November 30, 2024 End: November 30, 2024 Nabeel Cartagena NP, NP-Torsten Referring Provider Active Start: November 30, 2024 End: November 30, 2024 Goals (unrecognized section and content) Goals may be documented in a n alternate sectionGoals may be documented in an alternate sectionGoals may be documented in an alternate section FOR RECORDS PERTAINING TO PATIENTS WHO ARE OR HAVE BEEN ENROLLED IN A CHEMICAL DEPENDENCY/SUBSTANCEABUSE PROGRAM, SOME INFORMATION MAY BE OMITTED. This clinical summary was aggregated from multiple sources. Caution should be exercised in using it in the provision of clinical care. This summary normalizes information from multiple sources, and as a consequence, information in this document may materially change the coding, format and clinical context of patient data. In addition, data may be omitted in some cases. CLINICAL DECISIONS SHOULD BE BASED ON THE PRIMARY CLINICAL RECORDS. [employer] provides no warranty or guarantee of the accuracy or completeness of information in this document.
--- NOTE | 2025-02-15 16:45 | US_ITS ---
PROCEDURE: KIDNEY AND BLADDER 02/15/2025 REASON FOR EXAM: URINARY TRACT INFECTIONS TECHNIQUE: Procedure Code: USKI Modality: US Procedure: KIDNEY AND BLADDER FINDINGS: Right kidney measures 10.3 cm and left kidney measures 9.7 cm. Normal echotexture of bilateral kidneys. No hydronephrosis. No renal stones. Urinary bladder is unremarkable. Incidentally seen is increased hepatic echotexture. US/Kidney and Bladder IMPRESSION: No hydronephrosis. Hepatic steatosis. Reading Location: [id number]
== END | disposition home or self-care (01) ==
LOC: US 16:42
PROVIDERS: PCP Family Medicine; Referring Provider Urology; Visit Provider Urology
DX: N39.0 Urinary tract infection, site not specified (principal)
CPT/HCPCS: 76770